=== PATIENT | female | born 1960 | race Caucasian/White ===

== ENCOUNTER → 2016-03-10 | Outpatient (CLI) | payer BC | LOC: YCFC.O 14:43 | PROVIDERS: ATTEND Nurse Practitioner Family | DX: E78.2 Mixed hyperlipidemia (principal); Z13.29 Encounter for screening for other suspected endocrine disorder ==

== ENCOUNTER → 2016-06-02 | Outpatient (CLI) | payer BC ==
--- NOTE | 2016-06-03 15:57 | RAD ---
EXAM DESCRIPTION: Knee,Left Complete CLINICAL HISTORY: 56 years Female, EFFUSION COMPARISON: None. FINDINGS: 3 views of the left knee show no acute fracture or malalignment. There is advanced medial joint space narrowing with medial osteophyte formation. Small ossified arising the lateral margins of the left knee joint, but there is no lateral joint space narrowing. No definite patellofemoral joint space narrowing. The bones appear demineralized. There is a probable left knee joint effusion. IMPRESSION: Advanced degenerative changes in the medial compartment with less advanced degenerative changes elsewhere in the left knee. Left knee joint effusion and probable bony demineralization. Electronically signed by: Santos Alcocer MD 06/03/2016 3:56 PM CDT
== END ==
LOC: YCFC.O 15:23
PROVIDERS: ATTEND Nurse Practitioner Family
DX: M25.462 Effusion, left knee (principal); M12.862 Other specific arthropathies, not elsewhere classified, left knee

== ENCOUNTER → 2016-06-25 | Outpatient (CLI) | payer BC ==
--- NOTE | 2016-06-26 06:53 | RAD ---
Procedure: XR PELVIS 1-2 VIEWS Exam Date: 06/25/2016 Ordering Provider: JORGE FLORES Clinical Indication: HIP PAIN Comparison: None FINDINGS: There is no fracture or dislocation. Articular surface of each hip is preserved. The sacroiliac joints are intact bilaterally. The pubic symphysis is normal. There is a lytic, somewhat expansile appearing lesion, in the midshaft of the left femur. There are no suspicious calcifications. Impression: 1. No acute fracture or dislocation within the pelvis or either hip. 2.There is a lytic, somewhat expansile appearing lesion, in the midshaft of the left femur. Further evaluation with radiographs of the left femur is recommended. Electronically signed by: Blair Hernandez MD 06/26/2016 6:51 AM CDT
== END | disposition home or self-care (01) ==
LOC: RAD 14:51
PROVIDERS: ATTEND Orthopaedic Surgery
DX: M25.552 Pain in left hip (principal)

== ENCOUNTER → 2016-09-08 | Outpatient (CLI) | payer BC ==
--- NOTE | 2016-09-08 16:22 | RAD ---
History: Preoperative evaluation. Chest x-ray: PA and lateral views are compared with 2016 exam. Lung volumes are normal with increased interstitial markings, grossly stable. No definite infiltrate or effusion. Contour of the heart and mediastinum is normal. Diffuse osteopenia. IMPRESSION: Increased interstitial markings, suspected chronic. Stable chest since 12/2015. Electronically signed by: Angle Morrissey MD 09/08/2016 4:21 PM CDT Workstation: [id number]
== END | disposition home or self-care (01) ==
LOC: YCFC.O 09:48
PROVIDERS: ATTEND Nurse Practitioner Family
DX: M19.90 Unspecified osteoarthritis, unspecified site (principal); Z01.818 Encounter for other preprocedural examination

== ENCOUNTER → 2016-11-12 | Outpatient (CLI) | payer OTHER ==
--- NOTE | 2016-11-14 16:59 | RAD ---
PROCEDURE: Chest,2 Views CLINICAL HISTORY: PRE-SURGERY EVAL INDICATION: Same as above COMPARISON: 09/08/2016 TECHNIQUE: PA and and lateral chest radiographs were obtained. FINDINGS: The lung hale are well inflated. There are no discrete airspace infiltrates, pneumothoraces or pleural effusions. The pulmonary vascularity is normal The cardiomediastinal silhouette is unremarkable for patient's age and sex. IMPRESSION: There is no acute pleural-parenchymal process seen in the imaged lung hale. Place of interpretation: Teleradiology. Electronically signed by: Pancho Manzano MD 11/14/2016 4:58 PM CDT Workstation: [id number]
== END | disposition home or self-care (01) ==
LOC: LAB.O 09:04
DX: R73.09 Other abnormal glucose (principal); Z01.818 Encounter for other preprocedural examination

== ENCOUNTER 2016-11-25 04:03 | Inpatient (IN) | payer OTHER ==
--- NOTE | 2016-11-23 13:21 | HP ---
CHIEF COMPLAINT: Left knee pain. HISTORY OF PRESENT ILLNESS: Caro is a 56-year-old female with a history of severe knee pain that has been going on for years and getting progressively worse. She has also noticed increasing deformity. She has no radiation of pain and no neurologic symptoms. Because of the ongoing pain and failure of conservative measures, she has requested operative intervention. After discussing the risks, benefits and alternatives to that, the patient has given informed consent. PAST SURGICAL HISTORY: None. MEDICATIONS: 1. Levothyroxine. 2. Meloxicam. 3. Lovastatin. 4. Lisinopril. ALLERGIES: NO KNOWN DRUG ALLERGIES. CODE STATUS: Full code. IMMUNIZATIONS: Up to date. SOCIAL HISTORY: The patient does not drink or use any illicit drugs. She does smoke. FAMILY HISTORY: None pertinent to today's complaint. REVIEW OF SYSTEMS: Negative except as indicated in the History of Present Illness. PHYSICAL EXAMINATION: VITAL SIGNS: Blood pressure 117/73. Pulse 74. Height 5'. Weight 107. MENTAL STATUS: The patient is awake, alert, and is able to give a good history and participate in the physical. The patient is oriented to person, place and time. SKIN: Normal tone and turgor. HEENT: Normocephalic, atraumatic. Pupils equal, round and reactive. Mucosal membranes are moist. NECK: Normal range of motion. No thyromegaly, no lymphadenopathy. CHEST: Normal respiratory excursion. CARDIAC: Regular rate and rhythm. No murmurs, rubs or gallops. MUSCULOSKELETAL: Bilateral upper extremities show full active range of motion without pain. She has intact sensation and they are warm and well perfused. She has no deformity. Strength is 5/5. The right lower extremity shows full range of motion of the hip. She does have some pain in the knee with range of motion, but maintains full range of motion in extension with flexion to about 130 degrees. Sensation is intact. She has no varus/valgus or anterior/ posterior laxity. The left lower extremity shows no pain in the hip with range of motion, but she has severe pain with range of motion of the knee. She has an obvious varus deformity, but no varus/valgus or anterior/posterior laxity. She has crepitus throughout her range of motion. She lacks about 5 degrees of extension and has about 110 degrees of flexion. Strength is 5/5. IMAGING: X-rays show end-stage arthritis. ASSESSMENT: 1. Osteoarthritis. PLAN: The plan at this point is for total knee arthroplasty. We have discussed the risks, benefits, and alternatives to that and the patient has given informed consent. #[id number] [facility]
[2016-11-25] MEDS ORDERED: LACTATED RINGERS 1,000 ML ONE (05:42)
[2016-11-25] MEDS ORDERED: SODIUM CHL 0.9% 50ML MIN-BAG+ 50 ML IVPB ONE ×3 (05:42→23:38)
[2016-11-25] MEDS ORDERED: TRANEXAMIC ACID 1,000 MG/10 ML VIAL ONE ×2 (05:42→05:44)
[2016-11-25] MEDS ORDERED: VANCOMYCIN HCL INJ 1,000 MG VIAL IVPB ONE ×3 (05:43→23:38)
[2016-11-25] MEDS ORDERED: ceFAZolin SODIUM 1 GM VIAL ONE ×4 (05:43→23:38)
[2016-11-25] MEDS ORDERED: SODIUM CHLORIDE 0.9% 250ML 250 ML ONE ×3 (05:43→23:38)
[2016-11-25] MEDS ORDERED: SODIUM CHLORIDE 0.9% 100ML 100 ML IVPB ONE (05:44)
[2016-11-25] MEDS ORDERED: fentaNYL CITRATE INJ 50 MCG/ML AMP ONE (06:27)
[2016-11-25] MEDS ORDERED: MIDAZOLAM INJ 2 MG/2 ML VIAL ONE (06:27)
[2016-11-25] MEDS ORDERED: MORPHINE SULFATE *EPIDURAL* 0.5 MG/ML VIAL ONE (06:27)
[2016-11-25] MEDS ORDERED: MORPHINE SULFATE INJ 10 MG/ML VIAL IM PRN (06:54)
[2016-11-25] MEDS ORDERED: ONDANSETRON INJ 4 MG/2 ML VIAL IV PRN (06:54)
[2016-11-25] MEDS ORDERED: ACETAMINOPHEN 325 MG TAB PO PRN (06:54)
[2016-11-25] MEDS ORDERED: TRANEXAMIC ACID INJ 1,000 MG in SODIUM CHLORIDE 0.9% 100ML 100 ML IVPB ONE (06:54)
[2016-11-25] MEDS ORDERED: BISACODYL SUPPOSITORY 10 MG PR PRN (06:54)
[2016-11-25] MEDS ORDERED: PROMETHAZINE HCL INJ 25 MG in SODIUM CHLORIDE 0.9% 50ML 50 ML IVPB PRN (06:54)
[2016-11-25] MEDS ORDERED: ACETAMINOPHEN 500 MG TAB PO PRN (06:54)
[2016-11-25] MEDS ORDERED: PROMETHAZINE HCL INJ 12.5 MG in SODIUM CHLORIDE 0.9% 50ML 50 ML IVPB PRN (06:54)
[2016-11-25] MEDS ORDERED: TEMAZEPAM 15 MG CAP PO PRN (06:54)
[2016-11-25] MEDS ORDERED: NALOXONE HCL INJ 0.4 MG/ML VIAL IV PRN (06:54)
[2016-11-25] MEDS ORDERED: ZOLPIDEM TARTRATE 5 MG TAB PO PRN (06:54)
[2016-11-25] MEDS ORDERED: MORPHINE SULFATE INJ 10 MG/ML VIAL IV PRN (06:54)
[2016-11-25] MEDS ORDERED: MAGNESIUM HYDROXIDE 30 ML UD PO PRN (06:54)
[2016-11-25] MEDS ORDERED: BENZOCAINE-MENTH LOZ (CEPACOL) 1 EA LOZ MT PRN (06:54)
[2016-11-25] MEDS ORDERED: ALUMINUM & MAGNESIUM HYDROXIDE 30 ML UD PO PRN (06:54)
[2016-11-25] MEDS ORDERED: MORPHINE PCA 1 MG/ML 100ML 1 BAG in PREMIX BAG 1 BAG IVPB SCH (07:00)
[2016-11-25] MEDS: ceFAZolin SODIUM 1 GM VIAL ONE ×2 (07:48→08:50)
[2016-11-25] MEDS: VANCOMYCIN HCL INJ 1,000 MG VIAL IVPB ONE ×2 (07:49→08:50)
[2016-11-25] MEDS: BUPIVACAINE 0.25% W/EPI 50 ML VIAL INJ ONE ×2 (08:38→09:26)
[2016-11-25] MEDS ORDERED: MORPHINE PCA 1 MG/ML 100 ML BAG IVPB ONE (08:52)
[2016-11-25] MEDS ORDERED: ACETAMINOPHEN IV 1000MG 100 ML ONE (09:14)
[2016-11-25] MEDS ORDERED: ePHEDrine SULF 50 MG/ML IV ONE (10:00)
[2016-11-25] MEDS ORDERED: LIDOCAINE 1% 10 ML VIAL INJ ONE (10:00)
[2016-11-25] MEDS ORDERED: PROPOFOL 200 MG/20 ML VIAL IV ONE (10:00)
[2016-11-25] MEDS ORDERED: raNITIdine HCL INJ 25 MG/ML VIAL IV ONE (10:00)
[2016-11-25] MEDS ORDERED: DEXAMETHASONE INJ 10 MG/ML VIAL IV ONE (10:00)
[2016-11-25] MEDS: DEX 5% W/NACL 0.45% 1000ML 1,000 ML IVS PRN ×2 (11:11→21:01)
[2016-11-25] MEDS: SODIUM CHLORIDE 0.9% (FLUSH) 10 ML SYG IV PRN ×2 (15:23→15:40)
[2016-11-25] MEDS: IV SET AND CAP CHANGE INJ INJ SCH (15:32)
[2016-11-25] MEDS: MAGNESIUM OXIDE 400 MG TAB PO SCH (15:36)
[2016-11-25] MEDS: CELECOXIB 100 MG CAP PO SCH ×2 (15:36→18:01)
[2016-11-25] MEDS: ceFAZolin SODIUM 1 GM in SODIUM CHL 0.9% 50ML MIN-BAG+ 50 ML IVPB SCH ×2 (15:40→23:47)
[2016-11-25] MEDS: VANCOMYCIN HCL INJ 1,000 MG in SODIUM CHLORIDE 0.9% 250ML 250 ML IVPB SCH (18:02)
[2016-11-25] MEDS ORDERED: busPIRone HCL 5 MG TAB PO PRN (19:59)
[2016-11-25] MEDS: NICOTINE PATCH 14 MG TD SCH (20:55)
[2016-11-25] MEDS: traZODone HCL 50 MG TAB PO SCH (21:01)
[2016-11-25] MEDS: DOCUSATE CALCIUM 240 MG CAP PO SCH (21:01)
[2016-11-25] MEDS: ENOXAPARIN SODIUM 30 MG/0.3 ML SYG SUBCU SCH (22:41)
[2016-11-25] MEDS ORDERED: LEVOTHYROXINE SODIUM 0.025 MG TAB ONE (23:38)
--- NOTE | 2016-11-26 01:56 | RAD ---
EXAM DESCRIPTION: Knee,Left 2 or More Views CLINICAL HISTORY: 56 years Female, TKA COMPARISON: 06/02/2016 FINDINGS: Immediate postoperative images demonstrate left total knee arthroplasty with prosthesis in appropriate position. Osteopenia. Operative changes in the left knee soft tissues. No acute fracture. IMPRESSION: 1. Left total knee arthroplasty in appropriate position. Electronically signed by: Fito Tavarez 11/26/2016 1:55 AM CDT
[2016-11-26] MEDS: traMADol HCL 50 MG TAB PO PRN ×2 (02:26→20:09)
[2016-11-26] MEDS: CYCLOBENZAPRINE HCL 10 MG TAB PO PRN ×2 (02:26→13:07)
[2016-11-26] MEDS: VANCOMYCIN HCL INJ 1,000 MG in SODIUM CHLORIDE 0.9% 250ML 250 ML IVPB SCH (05:46)
[2016-11-26] MEDS ORDERED: NON-FORMULARY MEDICATION 1 EA MIS (Levothyroxine Sodium [Levothyroxine Sodium] 50 MCG) PO SCH (07:00)
[2016-11-26] MEDS ORDERED: SODIUM CHL 0.9% 50ML MIN-BAG+ 50 ML IVPB ONE (07:30)
[2016-11-26] MEDS ORDERED: ceFAZolin SODIUM 1 GM VIAL ONE (07:30)
[2016-11-26] MEDS: SODIUM CHLORIDE 0.9% (FLUSH) 10 ML SYG IV PRN ×2 (08:02→09:36)
[2016-11-26] MEDS: CELECOXIB 100 MG CAP PO SCH ×2 (08:02→17:27)
[2016-11-26] MEDS: ceFAZolin SODIUM 1 GM in SODIUM CHL 0.9% 50ML MIN-BAG+ 50 ML IVPB SCH (08:04)
[2016-11-26] MEDS ORDERED: NON-FORMULARY MEDICATION 1 EA MIS (Lisinopril & Hydrochlorothiazi [Lisinopril/Hctz 20-12.5 PO SCH (09:00)
--- NOTE | 2016-11-26 09:17 | PN ---
DATE: 11/25/16 SUBJECTIVE: Ms. Putnam is doing very well right now. She is resting and has no complaints of pain. OBJECTIVE: Afebrile. Vital signs stable. Dressing is clean, dry and intact. ASSESSMENT: Status post total knee arthroplasty. PLAN: The plan at this point is for her to begin weight-bearing as tolerated on postoperative day 1. We will also increase her CPM as tolerated today. [facility][id number] [facility]
[2016-11-26] MEDS: MAGNESIUM OXIDE 400 MG TAB PO SCH (09:41)
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
[2016-11-26] MEDS ORDERED: hydroCHLOROthiazide 12.5 MG CAP ONE (10:20)
[2016-11-26] MEDS ORDERED: LISINOPRIL 10 MG TAB ONE (10:20)
[2016-11-26] MEDS: hydroCHLOROthiazide 12.5 MG CAP PO SCH (10:23)
[2016-11-26] MEDS: LISINOPRIL 10 MG TAB PO SCH (10:23)
[2016-11-26] MEDS: ENOXAPARIN SODIUM 30 MG/0.3 ML SYG SUBCU SCH ×2 (10:24→22:33)
--- NOTE | 2016-11-26 10:43 | PN ---
DATE: 11/26/16 SUBJECTIVE: Caro is doing pretty well today and she has good pain control. She has no other complaints at this time. OBJECTIVE: Afebrile. Vital signs stable. Dressing is clean, dry and intact. ASSESSMENT: Status post total knee arthroplasty. PLAN: We will continue with CPM. We will get her out of bed for weight- bearing as tolerated today. [facility][id number] [facility]
--- NOTE | 2016-11-26 10:52 | OP ---
DATE OF PROCEDURE: 11/25/16 PREOPERATIVE DIAGNOSIS: 1. Knee osteoarthritis. POSTOPERATIVE DIAGNOSIS: 1. Knee osteoarthritis. PROCEDURE: 1. Total knee arthroplasty. SURGEON: Main Tello MD. CLINICAL APPLICATION MANAGER: Shalom Miner CST, -Bobo. ANESTHESIA: General. COMPLICATIONS: None. FINDINGS: Severe arthritis with varus deformity. INDICATION: Ms. Putnam has a long history of severe knee pain for which she has tried extensive smelling. Unfortunately, she has been unable to get relief. Because of her failure of relief, she has requested operative intervention. After discussing the risks, benefits and alternatives to that, the patient has given informed consent for total knee arthroplasty. PROCEDURE: The patient was brought to the Operating Room and placed in supine position. General anesthesia was induced and the patient's leg was sterilely prepped and draped. Following prepping and draping, the distal femur was exposed and using an intramedullary guide, the distal femoral cut was made. The appropriate sized cutting block was measured, pinned into place, and the anterior, posterior, and chamfer cuts were made. The ACL was transected and the tibia was subluxed. Both the medial and lateral menisci were removed. An intramedullary guide was used to make the proximal tibial cut. The appropriate sized base plate was placed and a trial polyethylene was placed. The trial femur was placed, the knee was reduced, and the knee was taken through a range of motion. The knee was stable in anterior, posterior, varus and valgus stress. The patella tracked anatomically without evidence of subluxation or dislocation. After trialing, the trial components were removed and the bony surfaces were thoroughly irrigated with saline. Following irrigation, the surfaces were dried and the final components were cemented into place. The excess cement was removed and the remaining cement was allowed to cure. The knee was again taken through a range of motion to confirm stability. The wound was then irrigated with saline and closure was performed using PDS to approximate the arthrotomy followed by closure of the subcutaneous tissues with a combination of running and interrupted Monocryl sutures. Sterile dressing was placed. The patient was awoken from anesthesia and taken to Recovery. POSTOPERATIVE INSTRUCTIONS: The patient will be weight-bearing as tolerated on postoperative day 1. COMPONENTS: EVault Triathlon knee, size 3 femur, size 3 tibia, 9 mm insert. #[id number] [facility]
[2016-11-26] MEDS: HYDROcodone 5MG/APAP 325MG 1 EA TAB PO PRN (13:07)
[2016-11-26] MEDS ORDERED: LEVOTHYROXINE SODIUM 0.025 MG TAB ONE (20:03)
[2016-11-26] MEDS: DEX 5% W/NACL 0.45% 1000ML 1,000 ML IVS PRN (20:09)
[2016-11-26] MEDS: NICOTINE PATCH 14 MG TD SCH (20:09)
[2016-11-26] MEDS: traZODone HCL 50 MG TAB PO SCH (21:16)
[2016-11-26] MEDS: DOCUSATE CALCIUM 240 MG CAP PO SCH (21:16)
[2016-11-26] MEDS: ASCORBIC ACID 500 MG TAB PO SCH (21:18)
--- NOTE | 2016-11-26 21:35 | PN ---
DATE: 11/26/16 SUBJECTIVE: The patient is sitting up in a chair with her legs extended. She is showing improved ability to bear weight and to utilize the passive range of motion machine without significant discomfort. She is tolerating her nicotine patch and her ongoing tobacco cessation. She does have some slight sputum production as her lungs are clearing. No shortness of breath. Appetite is good. She is sleeping quite well. OBJECTIVE: Afebrile, blood pressure 106/65, pulse oximetry 96%. Hemoglobin 11.7. LUNGS: Clear. HEART: Tones regular. No drainage on the dressing noted. ASSESSMENT: 1. Postoperative day number 1 total left knee arthroplasty performed by Dr. Tello, orthopedic surgeon. 2. Chronic osteoarthritis with outpatient attempts to relieve his symptoms having failed and requiring surgical intervention to assist with symptoms and pain control. 3. Chronic smoker with chronic obstructive pulmonary disease, encouraged to stop. 4. History of hypertension. 5. History of cervical cancer. 6. History of ethanol abuse up to 1 year ago now stopped. PLAN: Will add some Vitamin C to assist with ongoing healing, especially in a chronic smoker. Continue with rehabilitation and anticipate acquisition of a rolling walker and bedside commode for home use, and will eventually be able to manage with outpatient rehabilitation when reaching a safe level to be able to go home. #[id number] [facility]
[2016-11-27] MEDS: traMADol HCL 50 MG TAB PO PRN ×2 (06:37→20:49)
[2016-11-27] MEDS: LEVOTHYROXINE SODIUM 0.025 MG TAB PO SCH (06:37)
[2016-11-27] MEDS: CELECOXIB 100 MG CAP PO SCH ×2 (08:07→17:26)
[2016-11-27] MEDS: SODIUM CHLORIDE 0.9% (FLUSH) 10 ML SYG IV SCH ×2 (09:27→20:50)
[2016-11-27] MEDS: MAGNESIUM OXIDE 400 MG TAB PO SCH (09:29)
[2016-11-27] MEDS: ASCORBIC ACID 500 MG TAB PO SCH ×2 (09:29→20:49)
[2016-11-27] MEDS: HYDROcodone 5MG/APAP 325MG 1 EA TAB PO PRN ×3 (09:32→18:44)
[2016-11-27] MEDS: hydroCHLOROthiazide 12.5 MG CAP PO SCH (11:08)
[2016-11-27] MEDS: LISINOPRIL 10 MG TAB PO SCH (11:09)
[2016-11-27] MEDS: ENOXAPARIN SODIUM 30 MG/0.3 ML SYG SUBCU SCH ×2 (12:14→22:30)
--- NOTE | 2016-11-27 14:55 | PN ---
SUPERVISING PHYSICIAN: Uriel Montes MD DATE: 11/27/16 SUBJECTIVE: The patient is sitting in her hospital bed. She is on her CPM machine. She has no complaints of shortness of breath, nausea, vomiting, diarrhea or pruritus. OBJECTIVE: VITAL SIGNS: Afebrile. Heart rate 86. Blood pressure 101/53. Respiratory rate 20. O2 sat 92% on 1 liter nasal cannula. LUNGS: Clear to auscultation bilaterally. CARDIAC: Regular rate and rhythm. ABDOMEN: Soft, nondistended, nontender. Bowel sounds are positive. EXTREMITIES: No cyanosis or clubbing. Bilateral pedal pulses are palpable at + 2. There is a dressing to her left knee that is dry and intact with very minimal swelling in the knee area. NEUROLOGIC: Awake, alert and oriented times three. LABORATORY: There are no labs or films to report at this time. ASSESSMENT: 1. Chronic osteoarthritis of the left knee status post left total knee arthroplasty, postoperative day #2, performed by Dr. Tello, orthopedic surgeon. 2. Chronic smoker with chronic obstructive pulmonary disease, encouraged to stop. 3. History of hypertension. 4. History of cervical cancer. 5. History of ethanol abuse up to approximately one year ago and has since stopped. PLAN: We will continue present supportive care. Orthopedic issues will be per Dr. Tello. She will continue with her strengthening and conditioning per physical therapy and plan for discharge tomorrow with [facility]. Otherwise, we will continue to monitor the patient closely and follow as needed. Dr. Montes is the collaborating physician and available for consultation. #[id number] [facility]
[2016-11-27] MEDS: CYCLOBENZAPRINE HCL 10 MG TAB PO PRN (15:36)
[2016-11-27] MEDS: NICOTINE PATCH 14 MG TD SCH (20:15)
[2016-11-27] MEDS: traZODone HCL 50 MG TAB PO SCH (20:49)
[2016-11-27] MEDS: DOCUSATE CALCIUM 240 MG CAP PO SCH (20:49)
[2016-11-28] MEDS: IV SET AND CAP CHANGE INJ INJ SCH (06:43)
[2016-11-28] MEDS: HYDROcodone 5MG/APAP 325MG 1 EA TAB PO PRN (06:44)
[2016-11-28] MEDS: LEVOTHYROXINE SODIUM 0.025 MG TAB PO SCH (06:44)
[2016-11-28] MEDS: CELECOXIB 100 MG CAP PO SCH (08:00)
[2016-11-28] MEDS: MAGNESIUM OXIDE 400 MG TAB PO SCH (09:36)
[2016-11-28] MEDS: HYDROcodone 10MG/APAP 325MG 1 EA TAB PO PRN ×2 (09:36→15:11)
[2016-11-28] MEDS: ASCORBIC ACID 500 MG TAB PO SCH (09:36)
[2016-11-28] MEDS: LISINOPRIL 10 MG TAB PO SCH (09:37)
[2016-11-28] MEDS: SODIUM CHLORIDE 0.9% (FLUSH) 10 ML SYG IV SCH (09:37)
[2016-11-28] MEDS: hydroCHLOROthiazide 12.5 MG CAP PO SCH (09:37)
[2016-11-28] MEDS: ENOXAPARIN SODIUM 30 MG/0.3 ML SYG SUBCU SCH (11:25)
--- NOTE | 2016-11-28 11:39 | PN ---
DATE: 11/27/16 SUBJECTIVE: Ms. Putnam is doing well and she is up to a chair. OBJECTIVE: She is afebrile. Vital signs are stable. Wound is clean. There are no signs or symptoms of infection. ASSESSMENT: 1. Status post total knee arthroplasty. PLAN: The plan is to continue on with routine physical therapy. [facility][id number] [facility]
--- NOTE | 2016-11-28 11:43 | PN ---
DATE: 11/28/16 SUBJECTIVE: Ms. Putnam subjectively is doing well. She is up to a chair and pain is well controlled. OBJECTIVE: She is afebrile. Vital signs are stable. Wound is clean. There are no signs or symptoms of infection. ASSESSMENT: 1. Status post total knee arthroplasty. PLAN: The plan at this point is to continue on with her therapy. She will be discharged when she meets therapy goals. [facility][id number] [facility]
[2016-11-28 17:11] VITALS: O2SAT 96
[2016-11-28 17:56] VITALS: BP 94/54; TEMP 98.1
[2016-11-28] MEDS ORDERED: BISACODYL SUPPOSITORY 10 MG PR ONE (21:00)
[2016-11-28] MEDS ORDERED: MAGNESIUM HYDROXIDE 30 ML UD PO ONE (21:00)
--- NOTE | 2016-11-28 21:02 | DS ---
SUPERVISING PHYSICIAN: Uriel Montes M.D. DISCHARGE DIAGNOSIS: 1. Chronic osteoarthritis of the left knee status post left total knee arthroplasty postoperative day #[address] Tello, orthopedic surgeon. 2. Chronic smoker with chronic obstructive pulmonary disease. She has been encouraged to stop. 3. History of hypertension. 4. History of cervical cancer. 5. History of ethanol abuse up to approximately 1 year ago and has since stopped. HISTORY OF PRESENT ILLNESS: This is a 56 year-old female patient who was admitted to the hospital on 11/25/16 for a left total knee arthroplasty. She has been having pain in her left knee for a number of years. She failed outpatient management and required surgical intervention to assist with symptom control. HOSPITAL COURSE: On the day of admission, she had a left total knee arthroplasty per Dr. Main Tello, orthopedic surgeon. She tolerated the procedure well. During her hospital stay she progressed well with her physical therapy for strengthening and conditioning. Her vital signs remained stable. Her blood pressure medicine was held several times due to her systolic blood pressures in the 90s, but she was asymptomatic with the lowered blood pressure. She did have a low-grade temperature at one time that was 99 but was encouraged to continue with good pulmonary hygiene. Hemoglobin and hematocrit were stable at 11.7 and 33.9. She will be discharged home today. DISCHARGE PLAN: The patient will be discharged home today in good condition. She is to resume her previous diet as well as her previous medications. She will [facility]. Her activity will be per Physical Therapy. She has a followup appointment with Dr. Tello on 11/09/16 at 9:15 AM. She was also give some Flexeril, Surfak and Hydrocodone as well as 8 additional days of Xarelto for new prescriptions. She is to followup with Dr. Tello or return to the hospital for any further complications or problems. DISCHARGE MEDICATIONS: 1. BuSpar. 2. Lovastatin. 3. Trazodone. 4. Tramadol. 5. Meloxicam. 6. Lisinopril/Hydrochlorothiazide. 7. Levothyroxine. 8. Cyclobenzaprine. 9. Docusate calcium. 10. Hydrocodone. 11. Xarelto. Dr. Montes is the collaborating physician available for consultation. #[id number] [facility]
== END 2016-11-28 17:40 | disposition home or self-care (01) | DRG 470 ==
LOC: AMB 04:03 → MS 10:30
PROVIDERS: ADMIT Orthopaedic Surgery; ATTEND Nurse Practitioner Acute Care
PROC: 0SRD0J9 Replacement of Left Knee Joint with Synthetic Substitute, Cemented, Open Approach (ICD-10-PCS; principal; 2016-11-25 07:01)
DX: M17.12 Unilateral primary osteoarthritis, left knee (principal); I10 Essential (primary) hypertension; J44.9 Chronic obstructive pulmonary disease, unspecified; F17.210 Nicotine dependence, cigarettes, uncomplicated; Z88.8 Allergy status to other drugs, medicaments and biological substances; Z85.41 Personal history of malignant neoplasm of cervix uteri

== ENCOUNTER → 2017-03-25 | Outpatient (CLI) | payer OTHER ==
--- NOTE | 2017-03-28 14:28 | RAD ---
EXAM DESCRIPTION: Ribs,Left 3 Views CLINICAL HISTORY: MASS OF SOFT TISSUE COMPARISON: Radiographs right ribs same visit. TECHNIQUE: AP and oblique views left ribs. FINDINGS: Minimal loss of bone density. No fracture or displacement. Calcified rib cartilage. No abnormal radiodense objects in the soft tissues. No acute infiltrate pleural effusion or pneumothorax. IMPRESSION: Left ribs are unremarkable. Decreased bone density. Consider osteoporosis screening and DEXA evaluation. Electronically signed by: Shalom Royal MD 03/28/2017 2:27 PM [facility]
--- NOTE | 2017-03-28 14:30 | RAD ---
EXAM DESCRIPTION: Ribs,Right 3 Views CLINICAL HISTORY: MASS OF SOFT TISSUE COMPARISON: Radiographs of the left RIBS same visit. TECHNIQUE: AP and oblique images right ribs. FINDINGS: Decreased bone density. No rib fracture or displacement. No abnormal radiodense objects in the soft tissues or joint spaces. No acute infiltrate or pleural effusion or pneumothorax. IMPRESSION: No acute rib abnormalities. Decreased bone density for patient's age. Consider osteoporosis screening and DEXA examination. Electronically signed by: Shalom Royal MD 03/28/2017 2:30 PM [facility]
--- NOTE | 2017-03-30 11:16 | MAM ---
EXAM DESCRIPTION: 3D Screening BILATERAL : Digital Mammography. CLINICAL HISTORY: 56 years Female SCREENING . No complaints. No family history of breast cancer. Postmenopausal. No HRT. COMPARISON: 2-D bilateral diagnostic mammography 07/25/2015 and 2-D bilateral digital screening study 10/06/2013. No prior reports available. TECHNIQUE: Bilateral CC and MLO projection full-field images, 3-D tomosynthesis digital mammographic technique. Also bilateral synthesized CC/ MLO full-field images. CAD not utilized. FINDINGS: The breast parenchymal density pattern is: Heterogeneously dense breast tissue, which may obscure small masses. No skin thickening or nipple retraction densest tissues in the anterior third of both breasts and relatively symmetric. No focal, stellate mass or density, focal asymmetry , and no suspicious microcalcifications bilaterally. Stable mammograms compared to prior study, taking into account differences in mammographic technique IMPRESSION: BI-RADS CATEGORY: 1 - NEGATIVE FOLLOW UP: Routine digital bilateral screening, one year interval from March 2017. Written communication explaining the findings and follow-up, will be mailed to the patient and referring health care provider. According to the [employer], yearly mammograms are recommended starting at age 40 and continuing as long as a woman is in good health. Any breast change noted on a breast self-exam should be reported promptly to the patient's healthcare provider. Breast MRI is recommended for women with an approximately 20-25% or greater lifetime risk of breast cancer, including women with a strong family history of breast or ovarian cancer and women who have been treated for Hodgkin's disease. A negative mammographic report should not delay tissue diagnosis in patients with significant clinical history or physical findings. Extremely dense breast tissue limits the sensitivity of digital mammography. Electronically signed by: Shalom Royal MD 03/30/2017 11:15 AM [facility]
== END ==
LOC: YCFC.O 11:07
PROVIDERS: ATTEND Nurse Practitioner Family
DX: Z12.31 Encounter for screening mammogram for malignant neoplasm of breast (principal); R22.9 Localized swelling, mass and lump, unspecified

== ENCOUNTER → 2017-04-15 | Outpatient (CLI) | payer OTHER | LOC: YCFC.O 11:45 | PROVIDERS: ATTEND Nurse Practitioner Family | DX: I10 Essential (primary) hypertension (principal); E03.9 Hypothyroidism, unspecified; E78.2 Mixed hyperlipidemia; F10.10 Alcohol abuse, uncomplicated ==

== ENCOUNTER → 2017-05-06 | Outpatient (CLI) | payer OTHER | LOC: YCFC.O 16:37 | PROVIDERS: ATTEND Nurse Practitioner Family | DX: I10 Essential (primary) hypertension (principal); E03.9 Hypothyroidism, unspecified; F10.10 Alcohol abuse, uncomplicated ==

== ENCOUNTER → 2020-02-21 | Outpatient (CLI) | payer BC ==
--- NOTE | 2020-02-21 20:08 | CT ---
Procedure: CT LUNG SCREENING Exam Date: February 21, 2020. Ordering Provider: Mackenzie Chung Clinical Indication: NICOTINE DEPENDENCE . Current cigarette smoker. Approximately 70 pack-years. This patient meets eligibility criteria for low-dose CT lung cancer screening. Comparison: No prior low-dose CT lung cancer screening examination. Baseline study. Technique: Using a multislice scanner, sequential helical axial imaging was obtained in the thorax, 2.5 mm thickness, 2.5 mm separation, from the level of the thoracic inlet through the lung bases without IV contrast. A low dose protocol was utilized for BMI less than 30: BMI: 20. CTDI: 1.75 mGy. 120. kVp. 45 mA. DLP 65 mGy-cm. 2D sagittal and coronal reconstructed images, 6.0 mm thickness, were obtained. This exam was performed according to our departmental dose optimization program which includes use of automated exposure control, adjustment of the mA and/or kV according to patient size and/or use of iterative reconstruction technique. Nodule measurements under 10 mm are given as mean value of 3 axes diameters. FINDINGS: Lungs and large airways: Multiple bilateral large blebs in a centrilobular distribution becoming smaller and can remember from the upper lung hale to the lower lung hale. Bilateral subpleural semisolid nodules and densities are 3 mm or less in diameter in the bilateral upper lobes. Similar small densities bilateral lower lobes. Bilateral pleural parenchymal scarring. Also small probably calcified nodules. No abnormal nodules and no acute infiltrates. No mass and no consolidation. Pleura and space: Minimal focal thickening with no acute process. Mediastinum and trace: evaluation limited by low dose technique and lack of IV contrast. No abnormal lymph nodes and no dominant soft tissue masses. Heart and great vessels: Coronary artery calcifications bilateral. Atherosclerotic calcifications in the aortic arch. Chest wall, lower neck, axillae: Evaluation also limited by same factors as described above. Typical subclavicular and axillary lymph nodes. No dominant soft tissue mass. Upper abdomen: Evaluation limited by low-dose technique. No free air or free fluid. 1.4 x 1.3 x 1.1 cm mass right adrenal gland. Hounsfield density ranges from +11 to +22. 1.5 x 1.1 cm mass left adrenal gland. Hounsfield density +11 to no free air or free fluid. Normal size and density of the adrenal glands. Gallbladder contracted. Atherosclerotic calcifications in the aorta. +15. Osseous structures: Evaluation limited by low dose MIP technique. Minimal spondylosis in the thoracic spine. Arthrosis show the clavicle and sternal joints is mild. IMPRESSION: 1. Emphysematous changes in the lungs. Bilateral nodules solid and semisolid are seen, but are 3 mm or less in diameter. No abnormal nodules. No mass. No acute infiltrate.. [facility] Best Practice Recommendations: please see below for Lung RADS category and FOLLOW-UP.* *Lung RADS category CATEGORY 2- Nodules with a very low likelihood (less than 1%) of becoming a clinically active cancer due to size or lack of growth. Nodules: Perifissural nodule(s) < 10 mm. (526mm3). Solid or part solid nodule(s) less than 6mm (113.1 mm3), new solid nodule less than 4mm (33.5 mm3). Ground glass nodule(s) less than 30mm (83349.2 mm3) or unchanged or slow growing ground glass nodule 30mm or greater. Cat 3 or 4 nodule unchanged for 3 or more months. FOLLOW-UP: Continue annual screening with a Low Dose Chest CT in 12 months for re-evaluation. 2. Lung RADS Modifier S - Clinically Significant or Potentially Clinically Significant Findings (non lung cancer). Coronary artery calcifications. 3. Lung RADS Modifier S - Clinically Significant or Potentially Clinically Significant Findings (non lung cancer). Bilateral adrenal masses. Differential includes adrenal hypertrophy, primary adrenal dysfunction, metastasis, and lipid poor adenomas. Recommend CT scan of the adrenal glands with contrast washout protocol. Electronically signed by: Shalom Royal MD 02/21/2020 8:06 PM [facility]
--- NOTE | 2020-02-23 08:06 | MAM ---
EXAM DESCRIPTION: 3D Screening BILATERAL : Digital Mammography. CLINICAL HISTORY: 59 years Female SCREENING no complaints. No family history of breast cancer. Menarche age 11. No salivary. Menopause age unknown. No HRT.. Lifetime risk of developing breast cancer (Tyrer-Cuzick model)(%): 7.9. COMPARISON: Bilateral screening digital breast tomosynthesis March 2017. TECHNIQUE: Bilateral CC and MLO projection full-field images, digital tomosynthesis mammographic technique. Bilateral digital 2-D full-field MLO images. CAD available for 2-D images. FINDINGS: The breast parenchymal density pattern is: Heterogeneously dense breast tissue, which may obscure small masses. Axillary nodes. Solitary microcalcifications. No skin thickening or nipple retraction No new focal, stellate mass or density, focal asymmetry , and no suspicious microcalcifications bilaterally. Stable mammograms compared to prior study. IMPRESSION: Benign exam. BIRAD CATEGORY: 2 BENIGN FINDINGS. RECOMMENDATIONS: FOLLOW UP: Routine digital bilateral mammographic screening, one year interval from February 2020. Written communication explaining the IMPRESSION and follow-up, will be mailed to the patient and referring health care provider. According to the [employer], yearly mammograms are recommended starting at age 40 and continuing as long as a woman is in good health. Any breast change noted on a breast self-exam should be reported promptly to the patient's healthcare provider. Breast MRI is recommended for women with an approximately 20-25% or greater lifetime risk of breast cancer, including women with a strong family history of breast or ovarian cancer and women who have been treated for Hodgkin's disease. A negative mammographic report should not delay tissue diagnosis in patients with significant clinical history or physical findings. Extremely dense breast tissue limits the sensitivity of digital mammography. Electronically signed by: Shalom Royal MD 02/23/2020 8:04 AM [facility]
== END ==
LOC: CT 11:21
PROVIDERS: ATTEND Nurse Practitioner Family
DX: Z12.31 Encounter for screening mammogram for malignant neoplasm of breast (principal); Z12.2 Encounter for screening for malignant neoplasm of respiratory organs; J43.9 Emphysema, unspecified; R91.8 Other nonspecific abnormal finding of lung field; Z87.891 Personal history of nicotine dependence